=== PATIENT | male | born 1985 | race African-American/Black ===

== ENCOUNTER 2016-08-17 00:45 | Emergency (ER) | payer SELFPAY ==
[~2016-08-17 00:45] MED LIST: ALBUTEROL MININEB NEB; ALBUTEROL17 GM INH; CLARITIN10 M3 PO; DELTASONE20 MG PO; PREDNISONE PO
== END 2016-08-17 00:49 | disposition home or self-care (01) ==
LOC: SED 00:45
DX: J45.909 Unspecified asthma, uncomplicated (principal); Z79.899 Other long term (current) drug therapy
CPT/HCPCS: 99282

== ENCOUNTER 2016-10-02 11:49 | Emergency (ER) | payer SELFPAY ==
--- NOTE | ~2016-10-02 | CT4 ---
[facility] A Service [facility] RADIOLOGY TEXT RESULTS PATIENT: VIJAY BRINK LOCATION: SED : 81 UNIT #: [id number] AGE: [address]: Phillip Pond MD SEX: M ORDER DR: [id number] [place] [address] [id number] E MR#: [id number] Acc #: [id number] NAME: VIJAY BRINK. : 1985 SEX: M STUDY DATE/TIME: 10/02/2016 12:53 UNIT: SED ROOM: STUDY DESCRIPTION: CT Abd and Pelv Wo Cont Attending Physician: Phillip Pond M.D. Ordering Physician: Phillip Pond M.D. Primary Care Physician: No Primary Care Physician MEDICAL IMAGING REPORT This report is preliminary unless electronic signature is present. EXAM CT of the abdomen and pelvis without contrast media, dated 10/02/16. COMPARISON 05/20/16 HISTORY Right-sided abdominal pain and right flank pain beginning this morning. TECHNIQUE Axial imaging of the abdomen and pelvis was performed without contrast and compared to a prior contrast enhanced examination of April 2016. This CT exam was performed with one or more of the following radiation dose reduction techniques: automatic exposure control, adjustment of mA and/or kV according to patient size, and iterative reconstruction. FINDINGS Liver, gallbladder, spleen, pancreas and adrenal glands are normal. Both the right and left kidney are normal. Previous studies suggest a stone in the midpole frank. It is no longer identified. In the right side of the pelvis, there is a small calcification measuring about 2 mm just above the right ureterovesicular junction. The ureter itself is very difficult to identify due to the lack of any presence of any fat. The patient does not have a calcification on the previous study. CONCLUSION 1. 2 mm stone right distal ureter just above the right ureterovesicular junction. No significant hydronephrosis. Previous scan of May 20 showed the stone within the kidney. The remainder of the scan is normal. Dictated by... [facility] A Service of [facility] RADIOLOGY TEXT RESULTS PATIENT: VIJAY BRINK [id number] [birth year] UNIT #: [id number] AGE: [address]: Phillip Pond MD SEX: M ORDER DR: Dino Javier M.D. THIS IS AN ELECTRONICALLY VERIFIED REPORT Dino Javier M.D. at 10/05/2016 9:18 AM JHON/malou TD: 10/02/2016 15:19 JOB #: [id number] MEDICAL IMAGING REPORT Page 1 of 1
[2016-10-02 12:34] LABS: BASOPHIL% 0.5 % (0-2.5); EOSINOPHIL# 0.1 X10e3 (0-0.7); EOSINOPHIL% 1.9 % (0.0-7.0); HEMOGLOBIN 16.8 gm/dL (13.0-16.0); LYMPHOCYTE# 1.4 X10e3 (1.0-3.5); LYMPHOCYTE% 19.3 % (17.0-45.0); MEAN CELL VOLUME 86.2 FL (83-96); MEAN CORPUSCULAR HEMOGLOBIN 29.6 PG (28-34); MEAN CORPUSCULAR HGB CONC 34.3 g/dL (30-36); MEAN PLATELET VOLUME 8.2 FL (6.5-11.5); MONOCYTE# 0.4 X10e3 (0-1.0); MONOCYTE% 5.6 % (3.0-12.0); NEUTROPHIL# 5.1 X10e3 (1.5-7.1); NEUTROPHIL% 72.7 % (40-75); PLATELET COUNT 220 X10e3 (140-420); RED BLOOD COUNT 5.69 X10e (3.90-5.60); RED CELL DISTRIBUTION WIDTH 12.6 % (11.0-15.5); WHITE BLOOD COUNT 7.1 X10e3 (4.0-10.5)
[2016-10-02 12:36] LABS: DIFF IND NO
[2016-10-02 12:43] LABS: URINE APPEARANCE CLOUDY; URINE BILIRUBIN NEG (NEG); URINE BLOOD 3+ (NEG); URINE COLOR BROWN; URINE GLUCOSE NEG (NORM); URINE KETONE NEG (NEG); URINE LEUKOCYTE ESTERASE NEG (NEG); URINE NITRATE NEG (NEG); URINE PROTEIN 2+ (NEG); URINE SPECIFIC GRAVITY 1.025 (1.003-1.035)
[2016-10-02 12:44] LABS: MICRO INDICATED? YES; URINE RBC INNUM /[HPF] (0-2); URINE SOURCE CLEAN CATCH
[2016-10-02 12:45] LABS: CULTURE INDICATED? YES; URINE BACTERIA 4+ (NEG); URINE SQUAMOUS EPITHELIAL CELL FEW /[HPF]; URINE YEAST PRESENT
[2016-10-02 12:56] LABS: ALBUMIN SERUM 5.4 g/dL (3.5-5.0); BILIRUBIN, DIRECT 0.1 mg/dL (0.0-0.2); BILIRUBIN,INDIRECT 0.8 mg/dL (0.0-0.9); BILIRUBIN,TOTAL 0.9 mg/dL (0.2-2.0); CALCIUM SERUM 9.4 mg/dL (8.4-10.2); GLOM FILT RATE Estimated 114.9 mL/min (>60); POTASSIUM 3.9 mmol/L (3.5-5.1); PROTEIN TOTAL SERUM 8.8 g/dL (6.0-8.3)
== END 2016-10-02 13:42 | disposition home or self-care (01) ==
LOC: SED 11:49
PROVIDERS: Emergency Medicine
DX: N20.1 Calculus of ureter (principal); J45.909 Unspecified asthma, uncomplicated; F17.210 Nicotine dependence, cigarettes, uncomplicated; Z87.442 Personal history of urinary calculi; Z98.890 Other specified postprocedural states
CPT/HCPCS: 36415; 74176; 80048; 80076; 81003; 83690; 85025; 87086; 96374; 96375; 99284; 99285; J1170; J2405

== ENCOUNTER 2016-12-16 22:01 | Emergency (ER) | payer SELFPAY ==
[~2016-12-16] VITALS: Ht 170.2 cm; Wt 77.6 kg
--- NOTE | ~2016-12-16 | CT2 ---
[facility] A Service of [facility] RADIOLOGY TEXT RESULTS PATIENT: VIJAY BRINK LOCATION: SED : 83 UNIT #: [id number] AGE: [address]: Aylin Zhu SEX: M ORDER DR: [id number] [place] [id number] E MR#: [id number] Acc #: [id number] NAME: VIJAY BRINK. : 1985 SEX: M STUDY DATE/TIME: 12/16/2016 23:19 UNIT: SED ROOM: STUDY DESCRIPTION: CT Abd and Pelv W Cont Attending Physician: Aylin Zhu Pa-C Ordering Physician: Ed Doc José Rogers Primary Care Physician: No Primary Care Physician MEDICAL IMAGING REPORT This report is preliminary unless electronic signature is present. EXAM CT abdomen and pelvis with contrast, 12/16/2016. HISTORY 31-year-old male in the ED complaining of right-side abdomen pain and nausea. Symptoms for about 1 week, worsening today. TECHNIQUE CT examination of the abdomen and pelvis with IV contrast. GI contrast was not ordered, limiting evaluation of the GI tract. This CT exam was performed with one or more of the following radiation dose reduction techniques: automatic exposure control, adjustment of mA and/or kV according to patient size, and iterative reconstruction. FINDINGS ABDOMEN FINDINGS: Liver, pancreas, spleen, and kidneys are normal in size and appearance. No gallbladder distension or bile duct dilatation. Small bowel and colon are normal in caliber and appearance, as imaged. The appendix is normal. PELVIS FINDINGS: Urinary bladder, prostate, and rectum are within normal limits. No inguinal hernia or abdominal wall hernia. Limited lung base images show no active disease in the lower chest. IMPRESSION Negative CT examination of the abdomen and pelvis. [facility] A Service [facility] RADIOLOGY TEXT RESULTS PATIENT: VIJAY BRINK LOCATION: SED : [birth year] UNIT #: [id number] AGE: [address]: Aylin Zhu SEX: M ORDER DR: Dictated by... Diego Patterson M.D. THIS IS AN ELECTRONICALLY VERIFIED REPORT Deigo Patterson M.D. at 12/17/2016 9:45 PM RGW/pillo TD: 12/17/2016 10:20 JOB #: [id number] MEDICAL IMAGING REPORT Page 1 of 1
[2016-12-16 23:04] LABS: URINE SOURCE CLEAN CATCH
[2016-12-16 23:08] LABS: URINE APPEARANCE CLEAR; URINE BILIRUBIN NEG (NEG); URINE BLOOD NEG (NEG); URINE COLOR YELLOW; URINE GLUCOSE NEG (NORM); URINE KETONE NEG (NEG); URINE LEUKOCYTE ESTERASE NEG (NEG); URINE NITRATE NEG (NEG); URINE PROTEIN NEG (NEG); URINE SPECIFIC GRAVITY 1.015 (1.003-1.035)
[2016-12-16 23:09] LABS: EOSINOPHIL# 0.7 X10e3 (0-0.7); HEMATOCRIT 42.8 % (38.0-50.0); HEMOGLOBIN 14.4 gm/dL (13.0-16.0); LYMPHOCYTE# 1.7 X10e3 (1.0-3.5); MEAN CELL VOLUME 88.4 FL (83-96); MEAN CORPUSCULAR HEMOGLOBIN 29.8 PG (28-34); MEAN CORPUSCULAR HGB CONC 33.7 g/dL (30-36); MEAN PLATELET VOLUME 8.3 FL (6.5-11.5); MONOCYTE% 15.4 % (3.0-12.0); NEUTROPHIL# 3.1 X10e3 (1.5-7.1); NEUTROPHIL% 47.6 % (40-75); PLATELET COUNT 188 X10e3 (140-420); RED BLOOD COUNT 4.84 X10e (3.90-5.60); RED CELL DISTRIBUTION WIDTH 12.8 % (11.0-15.5); WHITE BLOOD COUNT 6.5 X10e3 (4.0-10.5)
[2016-12-16 23:11] LABS: MICRO INDICATED? NO
[2016-12-16 23:12] LABS: DIFF IND NO
[2016-12-16 23:26] LABS: BILIRUBIN,TOTAL 0.5 mg/dL (0.2-2.0); BUN/CREATININE RATIO 12.5; CREATININE SERUM 1.2 mg/dL (0.6-1.4); GLOM FILT RATE Estimated 91.6 mL/min (>60); POTASSIUM 3.9 mmol/L (3.5-5.1); PROTEIN TOTAL SERUM 6.4 g/dL (6.0-8.3)
[2016-12-19 08:00] LABS: CHLAMYDIA TRACH Not Detected (Not Detected); N GONOR Not Detected (Not Detected)
== END 2016-12-17 00:50 | disposition home or self-care (01) ==
LOC: SED 22:01
PROVIDERS: Physician Assistant
DX: R10.31 Right lower quadrant pain (principal); Z20.2 Contact with and (suspected) exposure to infections with a predominantly sexual mode of transmission; J45.909 Unspecified asthma, uncomplicated
CPT/HCPCS: 74177; 80053; 81003; 83690; 85025; 87491; 87591; 96361; 96374; 96375; 99284; J2270; J2405; Q9967